=== PATIENT | female | born 1985 | race Caucasian/White ===

== ENCOUNTER 2017-09-03 17:15 | Inpatient (IN) | payer BC ==
[2017-09-03] MEDS ORDERED: DEXTROSE 5%-LACTATED RINGERS 1,000 ML IV ONE ×2 (17:40→19:07)
[2017-09-03 18:46] VITALS: BMI 32.2
[2017-09-03 19:05] LABS: BASO % 0.5 % (0-2.0); EOS % 0.7 % (0-4.5); HEMATOCRIT 36.6 % (32.4-45.2); HEMOGLOBIN 12.3 GM/dL (10.7-15.3); LYMPH % 12.5 % (8-40); MCHC 33.5 g/dl (32.0-36.0); MEAN CELL VOLUME 77.6 fl (80-96); MEAN PLT VOLUME 7.8 fl (7.5-11.1); MONO % 7.2 % (3.8-10.2); NEUT % 79.1 % (42.8-82.8); PLATELET COUNT 338 K/MM3 (134-434); RBC 4.72 M/mm3 (3.60-5.2); RDW 19.8 % (11.6-15.6); WHITE BLOOD COUNT 15.3 K/mm3 (4.0-10.0)
[2017-09-03 19:30] LABS: INR 0.91 (0.82-1.09); PROTHROMBIN TIME (PATIENT) 10.3 SEC (9.7-13.0)
[2017-09-03 19:32] LABS: ACTIVATED PTT 26.8 SECONDS (26.9-34.4)
[2017-09-03 19:40] LABS: ANION GAP 11 (8-16); BILIRUBIN,TOTAL 0.2 mg/dL (0.2-1.0); BLOOD UREA NITROGEN 11 mg/dL (7-18); CHLORIDE 107 mmol/L (98-107); CO2 21 mmol/L (21-32); CREATININE 0.7 mg/dL (0.55-1.02); GLUCOSE,RANDOM 98 mg/dL (74-106); POTASSIUM 3.9 mmol/L (3.5-5.1); SGOT/AST 18 U/L (15-37); SGPT/ALT 16 U/L (12-78); SODIUM 139 mmol/L (136-145)
[2017-09-03 19:41] LABS: ALK PHOS 198 U/L (45-117)
[2017-09-03] MEDS ORDERED: VANCOMYCIN 1,000 MG in DEXTROSE 5%-WATER - 250 ML IVPB ONE (20:00)
[2017-09-03] MEDS ORDERED: DINOPROSTONE 10 MG VAGINAL SUPPOSITORY VG ONE (20:45)
--- NOTE | 2017-09-03 20:53 | HP ---
Past Medical History - Admission Chief Complaint: Rupture of membrane History of Present Illness: 32 yo , @ 38.6 weeks gestation, admitted for spontaneous rupture of membrane. History Source: Patient Limitations to Obtaining History: No Limitations - Past Medical History ...: 1 ...Para: 0 ...Term: 0 ...: 0 ...Spon : 0 ...Induced : 0 ...Multiple Gestation: 0 ...LMP: 12/05/16 ...EDC by [facility]: 09/11/17 - Past Surgical History Past Surgical History: Yes: None Hx Myomectomy: No Hx Transabdominal Cerclage: No - Smoking History Smoking history: Never smoked Have you smoked in the past 12 months: No - Alcohol/Substance Use Hx Alcohol Use: No - Social History History of Recent Travel: No Home Medications - Allergies Allergies/Adverse Reactions: Allergies Allergy/AdvReac Type Severity Reaction Status Date / Time Penicillins Allergy Mild Hives Verified 09/03/17 18:59 aspirin Allergy Verified 09/03/17 19:01 Review of Systems - Review of Systems Constitutional: reports: No Symptoms Eyes: reports: No Symptoms HENT: reports: No Symptoms Neck: reports: No Symptoms Cardiovascular: reports: No Symptoms Respiratory: reports: No Symptoms Gastrointestinal: reports: No Symptoms Genitourinary: reports: Pain Breasts: reports: No Symptoms Reported Neurological: reports: No Symptoms Endocrine: reports: No Symptoms Hematology/Lymphatic: reports: No Symptoms Pain Intensity: 3 Physical Exam - Maternity Vital Signs: Vital Signs Temperature 98.0 F 09/03/17 18:00 Pulse Rate 87 09/03/17 20:00 Respiratory Rate 20 09/03/17 20:00 Blood Pressure 143/77 09/03/17 20:00 O2 Sat by Pulse Oximetry (%) Constitutional: Yes: Well Nourished Eyes: Yes: Conjunctiva Clear HENT: Yes: Atraumatic Neck: Yes: Supple Cardiovascular: Yes: Regular Rate and Rhythm Lungs: Clear to auscultation - Abdominal Exam/OB Number of Fetuses: Single Presentation: Vertex Contractions: Yes Regularity: Irregular Intensity: Mild/Mod - Vaginal Exam/OB Vaginal Bleediing: No Dilatation (cm): 1 Effacement (%): 70 Amniotic Membrane Status: Ruptured Amniotic Fluid: Yes: Clear Station: -3 - Physical Exam ...Motor Strength: WNL Psychiatric: Yes: Alert, Oriented - Labs Lab Results: CBC, BMP 09/03/17 18:30 09/03/17 18:30 Problem List - Problems (1) Spontaneous rupture of amniotic membranes Code(s): [id number] - Assessment/Plan Spontaneous rupture of membrane Admit to L&D Cervidil induction Re -Evaluated in 12 hours or before if indicated
[2017-09-03] MEDS ORDERED: ALPRAZolam 0.25 MG TABLET PO PRN (21:30)
[2017-09-03] MEDS ORDERED: FENTANYL/BUPIVACAINE/NS/PF - PCEA - 50 ML DISP.SYRIN EP ONE (23:13)
[2017-09-03] MEDS ORDERED: OXYTOCIN 20 UNITS in 0.9% NS 20 UNIT/1,000 ML INFUS.BAG IV ONE (23:36)
[2017-09-04] MEDS ORDERED: WITCH HAZEL 50% (TUCKS) 40 PAD/JAR PAD TP PRN (00:18)
[2017-09-04] MEDS ORDERED: IBUPROFEN 600 MG TABLET (FP) PO PRN (00:18)
[2017-09-04] MEDS ORDERED: BISACODYL 10 MG SUPP.RECT RC PRN (00:18)
[2017-09-04] MEDS ORDERED: METHYLERGONOVINE MALEATE 0.2 MG/1 ML AMP IM PRN (00:18)
[2017-09-04] MEDS ORDERED: BENZOCAINE 20% 57 GM BOTTLE TP PRN (00:18)
[2017-09-04] MEDS ORDERED: BENZOCAINE 28 GM HEMORRHOIDAL OINTMENT TP PRN (00:18)
[2017-09-04 00:21] LABS: URINE APPEARANCE SLCLOUDY; URINE BILIRUBIN NEGATIVE (<2.0 mg/dL); URINE COLOR STRAW; URINE GLUCOSE (UA) NEGATIVE (NEGATIVE); URINE KETONE NEGATIVE (NEGATIVE); URINE LEUK ESTERASE TRACE (NEGATIVE); URINE NITRITE NEGATIVE (NEGATIVE); URINE PROTEIN NEGATIVE (NEGATIVE); URINE UROBILINOGEN NEGATIVE mg/dL (0.2-1.0)
--- NOTE | 2017-09-04 00:22 | PN ---
Delivery - Delivery Vaginal Delivery: Spontaneous Episiotomy/Laceration: 3rd degree EBL (cc): 600 Delivery, Single - [place] Feeding Plan Initial Plan: Elected not to breastfeed exclusively throughout hospitalization Remarks - Remarks Remarks: Normal spontaneous vaginal delivery of a live over third degree laceration. Nose / Oropharynx suctioned @ perineum. Cord clamped and cut. Placenta expelled spontaneously intact. Laceration repaired with 2.0 Chromic and 2.0 Biosyn.
[2017-09-04 00:32] LABS: EPI CELLS RARE /HPF (FEW); URINE MUCUS RARE
[2017-09-04] MEDS ORDERED: OXYTOCIN 20 UNITS in 0.9% NS 20 UNIT/1,000 ML INFUS.BAG IV ONE ×2 (01:09→02:42)
[2017-09-04] MEDS: OXYTOCIN 20 UNITS in 0.9% NS 20 UNIT/1,000 ML INFUS.BAG IV SCH ×2 (01:29→09:00)
[2017-09-04] MEDS ORDERED: DEXTROSE 5%-LACTATED RINGERS 1,000 ML IV SCH (01:30)
[2017-09-04] MEDS ORDERED: TUBERCULIN PPD 5 TU/0.1ML SYRINGE (IN PATIENT USE ONLY) ID ONE (02:45)
[2017-09-04] MEDS: ACETAMINOPHEN 325 MG TABLET (FP) PO PRN ×4 (03:31→21:49)
[2017-09-04] MEDS ORDERED: oxyCODONE HCL 5 MG TABLET PO PRN (07:10)
[2017-09-04] MEDS: oxyCODONE HCL 5 MG TABLET PO PRN ×3 (07:26→21:47)
[2017-09-04] MEDS: FERROUS SO4 325 MG TABLET (FP) PO SCH ×3 (09:09→17:05)
[2017-09-04] MEDS: PRENATAL VITAMINS W/ FOLIC ACID TABLET (FP) PO SCH (09:09)
--- NOTE | 2017-09-04 09:23 | PN ---
Post Note - Post Date of Delivery: 09/03/17 Post Day: 1 Vital Signs: Vital Signs - 24 hr 09/03/17 09/03/17 09/03/17 17:15 18:00 19:00 Temperature 98.3 F 98.0 F Pulse Rate 93 H 82 76 Respiratory 20 20 20 Rate Blood Pressure 121/73 122/69 108/65 O2 Sat by Pulse Oximetry (%) 09/03/17 09/04/17 09/04/17 20:00 00:20 00:35 Temperature Pulse Rate 87 90 84 Respiratory 20 20 20 Rate Blood Pressure 143/77 106/46 115/66 O2 Sat by Pulse 99 99 Oximetry (%) 09/04/17 09/04/17 09/04/17 00:50 01:05 03:00 Temperature 99.2 F 97.9 F Pulse Rate 88 85 88 Respiratory 20 20 20 Rate Blood Pressure 120/73 114/52 118/66 O2 Sat by Pulse 100 99 Oximetry (%) 09/04/17 06:00 Temperature 98.7 F Pulse Rate 92 H Respiratory 18 Rate Blood Pressure 105/62 O2 Sat by Pulse Oximetry (%) Labs: Laboratory Results - last 24 hr 09/03/17 09/03/17 09/03/17 18:30 18:30 18:30 WBC 15.3 H RBC 4.72 Hgb 12.3 Hct 36.6 MCV 77.6 L MCH 26.0 MCHC 33.5 RDW 19.8 H D Plt Count 338 MPV 7.8 Neutrophils % 79.1 Lymphocytes % 12.5 D Monocytes % 7.2 Eosinophils % 0.7 Basophils % 0.5 PT with INR 10.30 INR 0.91 PTT (Actin FS) 26.8 L Sodium 139 Potassium 3.9 Chloride 107 Carbon Dioxide 21 Anion Gap 11 BUN 11 Creatinine 0.7 Creat Clearance w eGFR > 60 Random Glucose 98 Calcium 9.0 Total Bilirubin 0.2 AST 18 ALT 16 Alkaline Phosphatase 198 H Total Protein 7.0 Albumin 3.0 L Urine Color Urine Appearance Urine pH Ur Specific [place] Urine Protein Urine Glucose (UA) Urine Ketones Urine Blood Urine Nitrite Urine Bilirubin Urine Urobilinogen Ur Leukocyte Esterase Urine WBC (Auto) Urine RBC (Auto) Ur Epithelial Cells Urine Mucus Blood Type Antibody Screen 09/03/17 09/03/17 18:30 21:30 WBC RBC Hgb Hct MCV MCH MCHC RDW Plt Count MPV Neutrophils % Lymphocytes % Monocytes % Eosinophils % Basophils % PT with INR INR PTT (Actin FS) Sodium Potassium Chloride Carbon Dioxide Anion Gap BUN Creatinine Creat Clearance w eGFR Random Glucose Calcium Total Bilirubin AST ALT Alkaline Phosphatase Total Protein Albumin Urine Color Straw Urine Appearance Slcloudy Urine pH 5.0 Ur Specific [place] 1.010 Urine Protein Negative Urine Glucose (UA) Negative Urine Ketones Negative Urine Blood 2+ H Urine Nitrite Negative Urine Bilirubin Negative Urine Urobilinogen Negative Ur Leukocyte Esterase Trace Urine WBC (Auto) 7 Urine RBC (Auto) 10 Ur Epithelial Cells Rare Urine Mucus Rare Blood Type O POSITIVE Antibody Screen Negative - Subjective Subjective: No Complaints, No Nausea or vomiting - Objective Afebrile: No Breast: Not engorged Abdomen: Soft, Non-tender Uterus: Fundus firm, Non-tender Vagina: Scant lochia Extremities: Non-tender - Assessment/Plan (1) (normal spontaneous vaginal delivery) Assessment: S/P Normal Plan: Routine Care
[2017-09-04] MEDS ORDERED: DIPHTH,PERTUSS(ACELL),TET 0.5 ML DISP.SYRIN IM ONE (10:00)
[2017-09-04] MEDS ORDERED: CITRIC ACID/SODIUM CITRATE 30 ML UNIT-DOSE CUP PO ONE (11:30)
[2017-09-05 06:06] LABS: HBsAG SCREEN Negative (Negative)
[2017-09-05] MEDS: oxyCODONE HCL 5 MG TABLET PO PRN (08:35)
[2017-09-05] MEDS: ACETAMINOPHEN 325 MG TABLET (FP) PO PRN (08:36)
[2017-09-05] MEDS: FERROUS SO4 325 MG TABLET (FP) PO SCH ×3 (08:37→17:39)
[2017-09-05 08:59] LABS: BASO % 0.7 % (0-2.0); EOS % 1.9 % (0-4.5); HEMATOCRIT 25.6 % (32.4-45.2); HEMOGLOBIN 8.2 GM/dL (10.7-15.3); LYMPH % 16.3 % (8-40); MCH 25.5 pg (25.7-33.7); MCHC 32.3 g/dl (32.0-36.0); MEAN CELL VOLUME 79.1 fl (80-96); MEAN PLT VOLUME 7.4 fl (7.5-11.1); MONO % 5.9 % (3.8-10.2); NEUT % 75.2 % (42.8-82.8); PLATELET COUNT 270 K/MM3 (134-434); RBC 3.23 M/mm3 (3.60-5.2); RDW 20.9 % (11.6-15.6)
[2017-09-05] MEDS: PRENATAL VITAMINS W/ FOLIC ACID TABLET (FP) PO SCH (09:58)
[2017-09-05 10:11] LABS: RUBELLA IgG ANTIBODY 2.64 index (Immune >0.99)
--- NOTE | 2017-09-05 10:19 | PN ---
Post Progress Note - Subjective Subjective: Pt seen/evaluated today. S/P 3rd degree laceration/. Ambulating but with some pain. Tolerating diet, voiding. Denies CP/SOB/F/C/GONZALES at this time. Type of Delivery: Vital Signs: Vital Signs Temperature 98.7 F 09/04/17 21:28 Pulse Rate 88 09/04/17 21:28 Respiratory Rate 18 09/04/17 21:28 Blood Pressure 107/61 09/04/17 21:28 O2 Sat by Pulse Oximetry (%) 99 09/04/17 01:05 Uterus: Yes: Fundus Firm Abdomen/GI: Yes: Abdomen soft, Tolerating PO. No: Abdominal Distention, Tender Lochia: Yes: Rubra Lochia, amount: Small Extremities: Yes: Calves non-tender. No: Edema Perineum: Yes: Episiotomy (with 3rd degree laceration - examined - healing well , well approximated) Activity: Ambulating - Labs Labs: CBC WBC 15.0 K/mm3 (4.0-10.0) H 09/05/17 08:00 RBC 3.23 M/mm3 (3.60-5.2) L D 09/05/17 08:00 Hgb 8.2 GM/dL (10.7-15.3) L D 09/05/17 08:00 Hct 25.6 % (32.4-45.2) L D 09/05/17 08:00 MCV 79.1 fl (80-96) L 09/05/17 08:00 MCH 25.5 pg (25.7-33.7) L 09/05/17 08:00 MCHC 32.3 g/dl (32.0-36.0) 09/05/17 08:00 RDW 20.9 % (11.6-15.6) H 09/05/17 08:00 Plt Count 270 K/MM3 (134-434) D 09/05/17 08:00 MPV 7.4 fl (7.5-11.1) L 09/05/17 08:00 Neutrophils % 75.2 % (42.8-82.8) 09/05/17 08:00 Lymphocytes % 16.3 % (8-40) D 09/05/17 08:00 Monocytes % 5.9 % (3.8-10.2) 09/05/17 08:00 Eosinophils % 1.9 % (0-4.5) D 09/05/17 08:00 Basophils % 0.7 % (0-2.0) 09/05/17 08:00 Problem List - Problems (1) (normal spontaneous vaginal delivery) Code(s): O80 - ENCOUNTER FOR FULL-TERM UNCOMPLICATED DELIVERY (2) Third degree laceration of perineum during delivery, Code(s): O70.20 - THIRD DEGREE PERINEAL LACERATION DURING DELIVERY, UNSP Assessment/Plan 32 y/o PPD#2 s/ normal with 3rd degree laceration AFVSS Hgb stable - continue PO iron twice daily for bowel regimen upon returning home - sent Rx for colace to pharmacy - discussed bowel regimen with pt verbally and she expressed understanding regular diet as tolerated f/u 2 weeks post for perineum check ok for discharge home later today
--- NOTE | 2017-09-05 10:22 | DS ---
Physical Exam-RN ON SITE Vital Signs: Vital Signs Temperature 98.7 F 09/04/17 21:28 Pulse Rate 88 09/04/17 21:28 Respiratory Rate 18 09/04/17 21:28 Blood Pressure 107/61 09/04/17 21:28 O2 Sat by Pulse Oximetry (%) 99 09/04/17 01:05 Constitutional: Yes: Well Nourished, No Distress, Calm Eyes: Yes: Conjunctiva Clear, EOM Intact HENT: Yes: Atraumatic, Normocephalic Neck: Yes: Supple, Trachea Midline Gastrointestinal: Yes: Soft Renal/: Yes: Vaginal Bleeding, Other (laceration -3rd degree - repaired and healing well/well approximated upon exam today) Wound/Incision: Yes: Clean/Dry, Well Approximated Neurological: Yes: Alert, Oriented Psychiatric: Yes: Alert, Oriented Labs: CBC, BMP 09/05/17 08:00 09/03/17 18:30 Delivery - Delivery Vaginal Delivery: Spontaneous Type of Anesthesia: Local Episiotomy/Laceration: 3rd degree EBL (cc): 600 Delivery, Single - Stages of Labor Date 1st Stage Initiatied: 09/03/17 Time 1st Stage Initiated: 17:20 Date 2nd Stage Initiated: 09/03/17 Time 2nd Stage Initiated: 23:30 Date of Delivery: 09/03/17 Time of Delivery: 23:45 Time Placenta Delivered: 23:47 - 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 Present: No Infant Gender: Male Weight: 6 lb 8 oz Position: Left, OA Total Hours ROM (Hrs/Mins): 7 HOURS/15 MINUTES - 1 Minute Total Score: 9 5 Minutes Total Score: 9 - [place] Feeding Plan Initial Plan: Elected not to breastfeed exclusively throughout hospitalization Discharge Summary Reason For Visit: LABOR ADMIT Current Active Problems (normal spontaneous vaginal delivery) (Acute) Spontaneous rupture of amniotic membranes (Acute) Third degree laceration of perineum during delivery, (Acute) Procedures: Principal: normal Other Procedures: 3rd degree laceration repair Condition: Good - Instructions Diet, Activity, Other Instructions: Physical activity Resume your normal everyday activity as tolerated no heavy lifting or exercise until seen by your surgeon. You may walk unlimited sawyer of and climb stairs. You may resume driving the car when you feel safe and comfortable behind the wheel. No sexual activity as instructed. Wound care If you have a bandage, leave it on, and keep dry for 48-72 hours. After that time discard the outer bandage. If they are tapes on the skin under the out of bandage leave them in place. They will peel off in the next 7 to 10 days. Do Not Peel them off. You may shower the day after surgery. If there are tapes present on the skin, you may shower over them. Diet There are no dietary restrictions. Eat healthy, high-fiber foods. Drink 6 to 8 glasses of liquid each day. This will assist in keeping your bowels are regular. Pain management You may take Tylenol or acetaminophen or Ibuprofen (for example, Motrin, Advil etc.) from my pain prescription medication is ordered should be taken as prescribed for moderate to severe pain. Call MD for any of the following: Severe pain not relieved by medication Fever of 101 or higher Excessive bleeding or drainage on dressing Inability to urinate Disposition: HOME - Home Medications Comprehensive Discharge Medication List: Ambulatory Orders Ibuprofen [Motrin -] 600 mg PO QID #28 tablet 09/04/17 Docusate Sodium [Colace -] 100 mg PO BID #60 capsule 09/05/17
[2017-09-05 10:43] VITALS: BP 116/65; PULSE 100; TEMP 98.9
[2017-09-05] MEDS ORDERED: SENNOSIDES/DOCUSATE COMBO (SENNA PLUS) TABLET (UD) PO PRN (22:00)
== END 2017-09-05 18:30 | disposition home or self-care (01) | DRG 775 ==
LOC: JLDR 17:15 → J3W 09-04 03:00
PROVIDERS: ADMIT Obstetrics & Gynecology; ATTEND Obstetrics & Gynecology
PROC: 10E0XZZ Delivery of Products of Conception, External Approach (ICD-10-PCS; principal; 2017-09-03)
PROC: 0DQR0ZZ Repair Anal Sphincter, Open Approach (ICD-10-PCS; 2017-09-03)
PROC: 0W8NXZZ Division of Female Perineum, External Approach (ICD-10-PCS; 2017-09-03)
PROC: 3E0P7VZ Introduction of Hormone into Female Reproductive, Via Natural or Artificial Opening (ICD-10-PCS; 2017-09-03)
DX: O70.20 Third degree perineal laceration during delivery, unspecified (principal); Z3A.38 38 weeks gestation of pregnancy; Z37.0 Single live birth
CPT/HCPCS: 36415; 59409; 80053; 81003; 81015; 85025; 85610; 85730; 86593; 86762; 86850; 86900; 86901; 87340; 90715

== ENCOUNTER 2018-10-11 11:39 | Emergency (ER) | payer OTHER, BC ==
[2018-10-11 12:22] VITALS: BP 125/77; PULSE 69; TEMP 98.1; BMI 22.6
--- NOTE | 2018-10-11 13:27 | PDOC ---
*Physical Exam - Vital Signs Last Vital Signs Temp Pulse Resp BP Pulse Ox 98.1 F 69 18 125/77 98 10/11/18 12:19 10/11/18 12:19 10/11/18 12:19 10/11/18 12:19 10/11/18 12:19 Medical Decision Making - Medical Decision Making 10/11/18 13:27 Pt seen by Midlevel Provider under my direct supervision Ancillary studies reviewed I agree with plan as outlined by Midlevel Provider 10/12/18 09:12 *DC/Admit/Observation/Transfer Diagnosis at time of Disposition: Closed head injury - Discharge Dispostion Disposition: HOME Condition at time of disposition: Good - Prescriptions Prescriptions: Cyclobenzaprine HCl [Flexeril -] 5 mg PO TID PRN #12 tablet PRN Reason: Back Pain - Referrals Referrals: Vikas Amaya MD [Primary Care Provider] - - Patient Instructions Printed Discharge Instructions: DI for Closed Head Injury, DI for Postconcussion Syndrome Additional Instructions: Although you have not been officially diagnosed with concussion I haven give you postconcussive syndrome instructions which entails avoiding straining your eyes such as reading small print within 15 minutes, texting, watching TV for more than 15 minutes and no contact sports. These recommendations are to be follow for the next 7 days. - Post Discharge Activity
[2018-10-11] MEDS ORDERED: CYCLOBENZAPRINE HCL 10 MG TABLET (FP) PO ONE (14:03)
[2018-10-11] MEDS ORDERED: ACETAMINOPHEN 500 MG TABLET (FP) PO ONE (14:03)
[2018-10-11] MEDS ORDERED: ACETAMINOPHEN 325 MG TABLET (FP) ONE (14:11)
[2018-10-11] MEDS ORDERED: CYCLOBENZAPRINE HCL 10 MG TABLET (FP) ONE (14:11)
--- NOTE | 2018-10-11 15:09 | PDOC ---
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 Patient states yesterday was outside in the play yard when she was struck by a soccer ball no the right side of her face. Patient denies LOC and did not seek medical care or take any medication since incident. Timing/Duration: 24 hours Severity: mild Associated Symptoms: reports: headaches, nausea/vomiting (mild) Past History - Travel Traveled outside of the country in the last 30 days: No Close contact w/someone who was outside of country & ill: No - Past Medical History Allergies/Adverse Reactions: Allergies Allergy/AdvReac Type Severity Reaction Status Date / Time Penicillins Allergy Mild Hives Verified 09/03/17 18:59 aspirin Allergy Verified 09/03/17 19:01 ibuprofen [From Motrin] Allergy Verified 10/11/18 12:23 Home Medications: Ambulatory Orders Ibuprofen [Motrin -] 600 mg PO QID #28 tablet 09/04/17 Docusate Sodium [Colace -] 100 mg PO BID #60 capsule 09/05/17 Asthma: No Cancer: No Cardiac Disorders: No Diabetes: No HTN: No Seizures: No Thyroid Disease: No - Suicide/Smoking/Psychosocial Hx Smoking History: Never smoked Have you smoked in the past 12 months: No Information on smoking cessation initiated: No Hx Alcohol Use: No Drug/Substance Use Hx: No Hx Substance Use Treatment: No Patient Lives Alone: No Lives with/in: spouse/SO Review of Systems - Review of Systems Able to Perform ROS?: Yes Constitutional: No: Symptoms Reported HEENTM: No: Symptoms Reported Respiratory: No: Symptoms reported Cardiac (ROS): Yes: Lightheadedness ABD/GI: Yes: Nausea : No: Symptoms Reported Musculoskeletal: No: Symptoms Reported Integumentary: No: Symptoms Reported Neurological: Yes: Headache, Dizziness. No: Weakness Endocrine: No: Symptoms Reported Hematologic/Lymphatic: No: Symptoms Reported *Physical Exam - Vital Signs Last Vital Signs Temp Pulse Resp BP Pulse Ox 98.1 F 69 18 125/77 98 10/11/18 12:19 10/11/18 12:19 10/11/18 12:19 10/11/18 12:19 10/11/18 12:19 - Physical Exam General Appearance: Yes: Nourished, Appropriately Dressed. No: Apparent Distress HEENT: positive: EOMI, RADHA, TMs Normal, Pharynx Normal. negative: Pale Conjunctivae Neck: positive: Supple. negative: Tender, Decreased range of motion Respiratory/Chest: positive: Lungs Clear, Normal Breath Sounds. negative: Respiratory Distress, Accessory Muscle Use Cardiovascular: positive: Regular Rhythm, Regular Rate. negative: Murmur Gastrointestinal/Abdominal: positive: Soft. negative: Tenderness Integumentary: positive: Normal Color, Warm, Moist Neurologic: positive: Motor Strength 5/5 (ambulatory) ED Treatment Course - ADDITIONAL ORDERS Additional order review: Laboratory Results 10/11/18 14:15 Urine HCG, Qual Negative - RADIOLOGY Radiology Studies Ordered: Category Date Time Status HEAD CT WITHOUT CONTRAST [CT] Stat CT Scan 10/11/18 14:02 Ordered - Medications Given in the ED: ED Medications Discontinued Medications Generic Name Dose Route Start Last Admin Trade Name Freq PRN Reason Stop Dose Admin Acetaminophen 975 mg 10/11/18 14:03 10/11/18 14:25 Tylenol - PO 10/11/18 14:04 975 mg ONCE ONE Administration Cyclobenzaprine HCl 5 mg 10/11/18 14:03 10/11/18 14:25 Flexeril - PO 10/11/18 14:04 5 mg ONCE ONE Administration Medical Decision Making - Medical Decision Making 10/11/18 15:33 Chief complaint: Hit by a soccer ball while at school yesterday now complaining of headache, mild nausea and dizziness. Patient had no LOC. Patient on no blood thinners. Exam. Patient with normal neuro focal findings Plan: Urine head CT 10/11/18 16:[address] negative for acute pathology. Patient to be discharged home postconcussive syndrome precautions. *DC/Admit/Observation/Transfer Diagnosis at time of Disposition: Closed head injury - Discharge Dispostion Disposition: HOME Condition at time of disposition: Good - Referrals Referrals: Vikas Amaya MD [Primary Care Provider] - - Patient Instructions Printed Discharge Instructions: DI for Closed Head Injury, DI for Postconcussion Syndrome Additional Instructions: Although you have not been officially diagnosed with concussion I haven give you postconcussive syndrome instructions which entails avoiding straining your eyes such as reading small print within 15 minutes, texting, watching TV for more than 15 minutes and no contact sports. These recommendations are to be follow for the next 7 days. - Post Discharge Activity
== END 2018-10-11 16:45 | disposition home or self-care (01) ==
LOC: JER 11:39
DX: S09.8XXA Other specified injuries of head, initial encounter (principal); W21.02XA Struck by soccer ball, initial encounter; Y93.89 Activity, other specified; Y92.218 Other school as the place of occurrence of the external cause; Y99.0 Civilian activity done for income or pay
CPT/HCPCS: 70450-TC; 84703; 99281-25

== ENCOUNTER 2022-01-19 22:46 | Emergency (ER) | payer BC ==
[2022-01-19 23:03] VITALS: BP 148/84; PULSE 100; RESP 18; TEMP 98; BMI 19.7
== END 2022-01-19 23:13 | disposition home or self-care (01) ==
LOC: FER 22:46
DX: F41.9 Anxiety disorder, unspecified (principal)
CPT/HCPCS: 82962; 99283-25

== ENCOUNTER 2022-12-28 16:19 | Emergency (ER) | payer BC ==
[2022-12-28 16:33] VITALS: BP 112/65; PULSE 80; RESP 18; TEMP 98.2; BMI 27.4
[2022-12-28] MEDS ORDERED: SODIUM CHLORIDE 0.9% 500 ML INFUS.BAG IV ONE (17:52)
[2022-12-28 18:34] LABS: BASO % 0.6 % (0-2.0); EOS % 2.6 % (0-4.5); HEMATOCRIT 43.6 % (32.4-45.2); HEMOGLOBIN 14.7 GM/dL (10.7-15.3); LYMPH % 24.5 % (8-40); MCH 29.8 pg (25.7-33.7); MCHC 33.8 g/dl (32.0-36.0); MEAN CELL VOLUME 88.3 fl (80-96); MEAN PLT VOLUME 6.8 fl (7.5-11.1); MONO % 7.9 % (3.8-10.2); NEUT % 64.4 % (42.8-82.8); PLATELET COUNT 347 10^3/uL (134-434); RBC 4.93 M/mm3 (3.60-5.2); RDW 13.2 % (11.6-15.6); WHITE BLOOD COUNT 13.8 K/mm3 (4.0-10.0)
[2022-12-28 18:36] LABS: EPI CELLS 13 /uL (0-25.1); HYALINE CASTS 1 /uL (0-3.1); URINE APPEARANCE CLEAR; URINE BACTERIA 1019 /uL (0-1359); URINE BILIRUBIN NEGATIVE (NEGATIVE); URINE COLOR YELLOW; URINE GLUCOSE (UA) NEGATIVE (NEGATIVE); URINE KETONE NEGATIVE (NEGATIVE); URINE LEUK ESTERASE 2+ (NEGATIVE); URINE NITRITE NEGATIVE (NEGATIVE); URINE PROTEIN NEGATIVE (NEGATIVE); URINE RBC 79 /uL (0-23.9); URINE UROBILINOGEN 0.2 mg/dL (0.2-1.0); URINE WBC 189 /uL (0-25.8)
[2022-12-28 18:55] LABS: BLOOD UREA NITROGEN 8.9 mg/dL (7-18)
[2022-12-28 18:58] LABS: CREATININE 0.6 mg/dL (0.55-1.3)
[2022-12-28 19:00] LABS: BILIRUBIN,TOTAL 0.5 mg/dL (0.2-1); TOT PROT 7.7 g/dl (6.4-8.2)
[2022-12-28] MEDS ORDERED: NITROFURANTOIN MACROCRYSTAL 50 MG CAPSULE (FP) PO SCH (20:30)
[2022-12-28] MEDS ORDERED: NITROFURANTOIN MACROCRYSTAL 50 MG CAPSULE (FP) ONE (20:54)
== END 2022-12-28 21:19 | disposition home or self-care (01) ==
LOC: JER 16:19
DX: O03.9 Complete or unspecified spontaneous abortion without complication (principal); O23.11 Infections of bladder in pregnancy, first trimester; N30.01 Acute cystitis with hematuria
CPT/HCPCS: 36415; 76817-TC; 80053; 81003; 84702; 85025; 86850; 86900; 86901; 87086; 99284-25